=== PATIENT | female | born 1990 | race Caucasian/White ===

== ENCOUNTER 2020-05-12 16:14 | Outpatient (REF) | payer OTHER, SELFPAY ==
--- NOTE | 2020-05-12 | US_ITS ---
EXAMINATION: US PELVIS COMPLETE US PELVIS ENDOVAGINAL CLINICAL INFORMATION: Complex right ovarian cyst COMPARISON: 02/01/2020 TECHNIQUE: Transabdominal and transvaginal images of the pelvis were obtained. FINDINGS: UTERUS: Anteverted. Normal size and contour, measuring 6.2 x 3.4 x 3.8 cm (cervix to fundus x AP x transverse). There is a suggestion of mild widening of the uterine horns of the fundus which could be seen in the setting of an arcuate uterine configuration. Uniform, homogeneous endometrium measures 0.2 cm in width. RIGHT OVARY: Normal size and echogenicity measuring 3.6 x 2.0 x 2.1 cm. 8 cc volume. Previously seen cyst with low-level echoes has resolved. LEFT OVARY: Normal size and echogenicity measuring 2.8 x 2.2 x 1.8 cm. 6 cc volume. FREE FLUID: Small volume of simple pelvic free fluid. US/US transvaginal IMPRESSION: Normal-appearing ovaries bilaterally. There is a suggestion of mild widening of the uterine horns in the fundus, which could be seen in the setting of an arcuate uterine configuration. This is a subtle, equivocal finding. If it would change clinical management, an noncontrast pelvic MRI could be obtained for definitive evaluation.
--- NOTE | 2020-05-12 | US_ITS ---
EXAMINATION: US PELVIS COMPLETE US PELVIS ENDOVAGINAL CLINICAL INFORMATION: Complex right ovarian cyst COMPARISON: 02/01/2020 TECHNIQUE: Transabdominal and transvaginal images of the pelvis were obtained. FINDINGS: UTERUS: Anteverted. Normal size and contour, measuring 6.2 x 3.4 x 3.8 cm (cervix to fundus x AP x transverse). There is a suggestion of mild widening of the uterine horns of the fundus which could be seen in the setting of an arcuate uterine configuration. Uniform, homogeneous endometrium measures 0.2 cm in width. RIGHT OVARY: Normal size and echogenicity measuring 3.6 x 2.0 x 2.1 cm. 8 cc volume. Previously seen cyst with low-level echoes has resolved. LEFT OVARY: Normal size and echogenicity measuring 2.8 x 2.2 x 1.8 cm. 6 cc volume. FREE FLUID: Small volume of simple pelvic free fluid. US/US pelvic complete IMPRESSION: Normal-appearing ovaries bilaterally. There is a suggestion of mild widening of the uterine horns in the fundus, which could be seen in the setting of an arcuate uterine configuration. This is a subtle, equivocal finding. If it would change clinical management, an noncontrast pelvic MRI could be obtained for definitive evaluation.
== END 2020-05-12 16:15 | disposition home or self-care (01) ==
LOC: HO.US 16:14
PROVIDERS: Visit Provider Obstetrics & Gynecology
DX: N83.291 Other ovarian cyst, right side (principal)
CPT/HCPCS: 76830; 76856

== ENCOUNTER 2020-12-05 12:02 | Outpatient (REF) | payer OTHER, SELFPAY ==
[2020-12-05 14:38] LABS: D Dimer 223 NG/ML
== END 2020-12-05 12:03 | disposition home or self-care (01) ==
LOC: HO.HMGCLDS 12:02
PROVIDERS: PCP Internal Medicine; Visit Provider Nurse Practitioner Family
DX: M79.661 Pain in right lower leg (principal)
CPT/HCPCS: 36415; 85379

== ENCOUNTER 2020-12-05 16:05 | Outpatient (REF) | payer OTHER, SELFPAY ==
--- NOTE | ~2020-12-05 | US_ITS ---
EXAMINATION: US VENOUS ULTRASOUND WITH DOPPLER LOWER EXTREMITY, RIGHT CLINICAL INFORMATION: Pain COMPARISON: None TECHNIQUE: Ultrasound of the deep veins is performed from the hip to the calf with compression sonography and color and pulse Doppler assessment. Spectral analysis with color-flow imaging is performed. FINDINGS: There is normal venous compression and respiratory variation and augmented flow. The visualized common femoral vein, superficial femoral vein, profunda femoral vein, popliteal vein, and the trifurcation region shows no evidence of deep venous thrombosis. There is no significant popliteal fossa cyst. If the patient's symptoms persist, followup ultrasound in 5 days 7 days might be of value to exclude proximal propagation from a non-visualized calf vein. US/US venous duplex LE RT IMPRESSION: No DVT demonstrated in the right lower extremity.
== END 2020-12-05 16:06 | disposition home or self-care (01) ==
LOC: HO.US 16:05
PROVIDERS: PCP Internal Medicine; Visit Provider Nurse Practitioner Family
DX: M79.661 Pain in right lower leg (principal)
CPT/HCPCS: 93971

== ENCOUNTER 2021-03-05 10:25 | Outpatient (REF) | payer OTHER, SELFPAY ==
[2021-03-05 11:12] LABS: MANUAL DIFF FLAG NO
[2021-03-05 11:30] LABS: Basophils Percent Auto 0.6 % (0-2); Eosinophils Absolute Auto 0.2 X10*3/uL (0.0-0.4); Eosinophils Percent Auto 4.2 % (0-4); Hematocrit 38.8 % (37-47); Hemoglobin 12.9 g/dl (12.0-16.0); Imm Gran Abs Auto 0.02 X10*3/uL (0.00-0.03); Imm Gran Pct Auto 0.4 % (0.0-0.4); Lymphocytes Absolute Auto 1.8 X10*3/uL (1.2-4.9); Lymphocytes Percent Auto 35.8 % (20-40); Mean Corpuscular HGB Conc 33.2 g/dl (31.0-35.0); Mean Corpuscular Hemoglobin 30.1 pg (27.0-33.0); Mean Corpuscular Volume 90.7 fL (80-98); Mean Platelet Volume 10.3 fL (9.4-12.3); Monocytes Absolute Auto 0.6 X10*3/uL (0.1-1.2); Monocytes Percent Auto 11.9 % (2-11); Neutrophils Absolute Auto 2.4 X10*3/uL (2.0-8.3); Neutrophils Percent Auto 47.1 % (45-73); Platelet Count 272 X10*3/uL (160-400); Red Blood Count 4.28 X10*6/uL (4.20-5.50); Red Cell Distribution Width 12.9 % (11.0-16.0); White Blood Count 5.1 X10*3/uL (4.8-10.8)
[2021-03-05 11:44] LABS: Alanine Aminotransferase 25 U/L (0-31); Aspartate Amino Transferase 23 U/L (5-31); Cholesterol 197 mg/dL; Glucose Fasting 86 mg/dL (60-99); HDL Cholesterol 58 mg/dL; LDL Cholesterol Calculated 128 mg/dl; Triglycerides 55 mg/dL
[2021-03-05 12:05] LABS: Vitamin D 25-OH Total 37.8 ng/mL (>30)
[2021-03-07 23:21] LABS: TS Negative Control Passed; TS Panel A 0; TS Panel B 0; TS Positive Control Passed; TSpotTB Negative (SeeBelow)
== END 2021-03-05 10:26 | disposition home or self-care (01) ==
LOC: HO.HMGCLDS 10:25
PROVIDERS: PCP Internal Medicine; Visit Provider Internal Medicine
DX: Z00.00 Encounter for general adult medical examination without abnormal findings (principal); Z11.1 Encounter for screening for respiratory tuberculosis; J30.89 Other allergic rhinitis
CPT/HCPCS: 36415; 80061; 82306; 82947; 84450; 84460; 85025; 86481

== ENCOUNTER → 2021-03-30 08:54 | Outpatient (BNVA) | payer OTHER, SELFPAY | PROVIDERS: Visit Provider Obstetrics & Gynecology ==